=== PATIENT | female | born 1990 | race Caucasian/White ===

== ENCOUNTER 2019-12-15 19:53 | Emergency (ER) | payer MEDICAID, OTHER ==
[~2019-12-15] VITALS: Ht 152.4 cm; Wt 54.0 kg
[~2019-12-15 19:53] MED LIST: FERR325E14 PO; PREN-385 PO
[2019-12-15 19:58] VITALS: BP 109/67
--- NOTE | 2019-12-15 20:11 | NUR ---
PT AMBULATED TO BED 12
--- NOTE | 2019-12-15 20:15 | NUR ---
29 F BIB SELF FOR C/C OF RUQ NUMBNESS AND BURNING X1 WEEK. PT STATES THE NUMBNESS AND BURNING PAIN BEGAN TRAVELING DOWN R SIDE OF BODY TO R FLANK, RLQ, AND R LOWER LEG TODAY. PT STATES IT FEELS LIKE A SUNBURN WHEN TOUCHING. UPON INSPECTION NO SKIN ABNORMALITIES VISUALIZED. STRENGTH EQUAL ON BOTH UPPER AND LOWER LIMBS. PT STATES SHE HAS HAD CHICKEN POX A CHILD AND DENIES ANY RASH OR VESICLES CURRENTLY. PT DENIES TAKING ANY MEDICATIONS FOR PAIN. LUNG SOUNDS CLEAR THROUGHOUT. PT DENIES FEVER, COUGH, SOB, AND TRAVEL. BED LOCKED AND IN LOWEST POSTION. SIDE RAILS X1. NO MED HX NO RX NKA
--- NOTE | 2019-12-15 20:24 | NUR ---
pt ambulated to rr to provide urine sample
--- NOTE | 2019-12-15 20:27 | NUR ---
PT RETURNED FROM RR WITH URINE SAMPLE. URINE DIP AND PREG PERFORMED.
--- NOTE | 2019-12-15 20:43 | NUR ---
LAB AT BEDSIDE. LABS COLLECTED AND SENT TO LAB.
[2019-12-15 20:57] LABS: APPEARANCE,URINE SL CLOUDY (CLEAR); BILIRUBIN,URINE NEGATIVE (NEGATIVE); BLOOD, URINE NEGATIVE (NEGATIVE); COLOR,URINE YELLOW (YELLOW); LEUKOCYTE ESTERASE ,URINE 1+ (NEGATIVE); NITRITE, URINE NEGATIVE (NEGATIVE); UGLUCOSE NEGATIVE (NEGATIVE)
[2019-12-15 20:59] LABS: BASOPHILS % (AUTO) 0.2 % (0.0-2.0); EOSINOPHILS # (AUTO) 0.1 K/uL (0-0.4); EOSINOPHILS % (AUTO) 1.6 % (0.0-4.0); HEMATOCRIT 37.5 % (36-48); HEMOGLOBIN 12.4 g/dL (12.0-16.0); LYMPHOCYTES # (AUTO) 1.9 K/uL (2.5-16.5); LYMPHOCYTES % (AUTO) 36.7 % (20.5-51.1); MEAN CORPUSCULAR HEMOGLOBIN 30 pg (27-31); MEAN CORPUSCULAR HGB CONC 33 g/dL (33-37); MEAN CORPUSCULAR VOLUME 89.5 fL (80-94); MONOCYTES # (AUTO) 0.3 K/uL (0.8-1.0); MONOCYTES % (AUTO) 5.4 % (1.7-9.3); NEUTROPHILS # (AUTO) 2.9 K/uL (1.8-7.7); NEUTROPHILS % (AUTO) 56.1 % (42.2-75.2); PLATELET COUNT (AUTO) 137 K/uL (140-450); RED BLOOD CELL COUNT(AUTO) 4.19 MIL/uL (4.20-5.40); RED CELL DISTRIBUTION WIDTH 13.2 % (11.6-13.7); WHITE BLOOD COUNT (AUTO) 5.2 K/uL (4.8-10.8)
[2019-12-15 21:20] LABS: RBC,URINE NONE SEEN /HPF (0-5)
[2019-12-15 21:21] LABS: ALBUMIN 3.8 g/dL (3.4-5.0); ANION GAP 9.4 (8-16); CARBON DIOXIDE 28.5 mmol/L (21-32); CREATININE 0.8 mg/dL (0.6-1.3); PHOSPHORUS 4.1 mg/dL (2.5-4.9); POTASSIUM 3.9 mmol/L (3.5-5.1); TOTAL BILIRUBIN 0.5 mg/dL (0.0-1.0)
[2019-12-15 21:40] VITALS: BP 115/86
--- NOTE | 2019-12-15 21:41 | NUR ---
Patient discharged with v/s stable. Written and verbal after care instructions given and explained. Patient alert, oriented and verbalized understanding of instructions. Ambulatory with steady gait. All questions addressed prior to discharge. ID band removed. Patient advised to follow up with PMD. Rx of acyclovir, naprosyn, norco given. Patient educated on indication of medication including possible reaction and side effects. Opportunity to ask questions provided and answered.
== END 2019-12-15 21:40 | disposition home or self-care (01) ==
LOC: MED 19:53
DX: M79.2 Neuralgia and neuritis, unspecified (principal); Z79.899 Other long term (current) drug therapy
CPT/HCPCS: 36415; 80053; 81001; 81025; 83735; 84100; 85025; 87086; 87186; 99283